=== PATIENT | male | born 1960 | race Caucasian/White ===

== ENCOUNTER → 2019-02-20 | Outpatient (REF) | payer OTHER | LOC: M LAB LCGH 08:49 | PROVIDERS: ATTEND Surgery | DX: K22.70 Barrett's esophagus without dysplasia (principal); K62.5 Hemorrhage of anus and rectum ==

== ENCOUNTER → 2023-08-14 | Outpatient (CLI) | payer OTHER ==
[~2023-08-14] MED LIST: ISOVUE-370 76% 100ML VIAL As Ordered ONE
== END ==
LOC: M RAD 12:59
PROVIDERS: ATTEND Otolaryngology
DX: K11.20 Sialoadenitis, unspecified (principal); K11.5 Sialolithiasis
CPT/HCPCS: 70491; Q9967